=== PATIENT | female | born 1990 | race Caucasian/White ===

== ENCOUNTER 2021-04-11 15:51 | Outpatient (CLI) | payer OTHER | END 2021-04-11 16:40 | disposition home or self-care (01) | LOC: NST 15:51 | PROVIDERS: ATTEND Obstetrics & Gynecology Maternal & Fetal Medicine | DX: Z34.83 Encounter for supervision of other normal pregnancy, third trimester (principal) ==

== ENCOUNTER 2021-05-11 09:15 | Inpatient (IN) | payer OTHER ==
[~2021-05-11] VITALS: Ht 165.1 cm; Wt 2.7 kg
== END 2021-05-27 11:53 | disposition home or self-care (01) | DRG 788 ==
LOC: OB/GYN 05-19 09:15 → O/R 05-24 07:06 → SURG-SUITE 05-24 07:06 → OB/GYN 05-24 09:15 → SURG-SUITE 05-24 11:44
PROVIDERS: ADMIT Obstetrics & Gynecology; ATTEND Obstetrics & Gynecology
PROC: 4A1HXFZ Monitoring of Products of Conception, Cardiac Rhythm, External Approach (ICD-10-PCS; 2021-05-24)
PROC: 10D00Z1 Extraction of Products of Conception, Low, Open Approach (ICD-10-PCS; principal; 2021-05-24 11:15)
DX: O64.1XX0 Obstructed labor due to breech presentation, not applicable or unspecified (principal); Z3A.39 39 weeks gestation of pregnancy; Z37.0 Single live birth; Z20.822 Contact with and (suspected) exposure to COVID-19